=== PATIENT | female | born 1980 | race Caucasian/White ===

== ENCOUNTER 2019-02-15 15:44 | Inpatient (IN) | payer OTHER ==
[~2019-02-15] VITALS: Ht 167.6 cm; Wt 79.8 kg
[2019-02-15 15:58] VITALS: BP 140/93
[2019-02-15 16:31] LABS: ABSOLUTE BASOPHILS 0.1 thou/uL (0.0-0.2); ABSOLUTE LYMPHOCYTES 1.9 thou/uL (0.8-5.3); ABSOLUTE MONOCYTES 0.8 thou/uL (0.0-1.2); ABSOLUTE NEUTROPHILS 4.9 thou/uL (1.6-8.1); BASOPHILS 1.3 %; EOSINOPHILS 0.6 %; HEMOGLOBIN 13.1 gm/dL (12.0-15.0); LYMPHOCYTES 24.3 %; MCH 27.7 pg (26.0-34.0); MCHC 32.6 g/dL (28.0-37.0); MCV 85.1 fL (80.0-100.0); MPV 6.8 fl. (7.2-11.1); NUCLEATED RBCS 0 /100WBC; PLATELET COUNT* 494 thou/uL (150-400); POLYS 63.8 %; RBC 4.71 mil/uL (4.20-5.00); WBC 7.7 thou/uL (4.0-11.0)
[2019-02-15 16:36] LABS: CREATININE 0.8 mg/dL (0.6-1.3)
[2019-02-15 16:41] LABS: ALBUMIN 3.9 g/dL (3.4-5.0); TOTAL BILIRUBIN 0.4 mg/dL (<0.1-1.0); TOTAL PROTEIN 7.6 g/dL (6.4-8.2)
[2019-02-15 16:42] LABS: URINE BILIRUBIN NEGATIVE (Negative); URINE BLOOD 3+ (Negative); URINE CLARITY CLEAR; URINE COLOR YELLOW; URINE GLUCOSE-RANDOM NEGATIVE (Negative); URINE KETONES NEGATIVE (Negative); URINE LEUKOCYTES-REFLEX 1+ (Negative); URINE PROTEIN NEGATIVE (Negative); URINE UROBILINOGEN 0.2 E.U./dl (0.2-1.0)
[2019-02-15 16:44] LABS: URINE NITRITE-REFLEX POSITIVE (Negative)
[2019-02-15 16:56] LABS: SQUAMOUS 4-10 Moderate /LPF (0-3)
[2019-02-15 16:57] LABS: BACTERIA-REFLEX >30 Many /HPF (None Seen); CASTS None Seen /LPF (None Seen); CRYSTALS None Seen /LPF (None Seen); URINE RBC 3-10 Few /HPF (0-2); URINE WBC-REFLEX >25 Many /HPF (0-5)
[2019-02-15 20:00] VITALS: BP 136/87
[2019-02-15 20:12] VITALS: BP 126/82
[2019-02-16] VITALS: BP 123/69
--- NOTE | 2019-02-16 04:41 | NUR ---
PT ARRIVED FROM ER AT 2009. ASSESSMENT COMPLETED TO THE BEST OF ABILITY DUE TO PT FALLING ASLEEP SEVERAL TIMES DURING ASSESSMENT. NO C/O PAIN OR DISCOMFORT. ABLE TO MAKE NEEDS KNOWN. STARTED IV FLUIDS PER P.O. PAPERWORK SIGNED. PT RESTING IN BED AT THIS TIME STILL. WILL CONTINUE TO MONITOR.
[2019-02-16 09:00] VITALS: BP 117/78
--- NOTE | 2019-02-16 10:31 | NUR ---
ASSUMED PT CARE AT 0730, FULL ASSESMENT DONE CHARTED. PT A/O X3-4, IS SOMEWHAT CONFUSED, FLAT AFFECT SHE REPORTS HEARING VOICES FROM SOMEONE "OUT THERE" REFERING TO THE ROOF. PT STATES "THEY" TOLD HER SHE HAS SCABIES. PT ADMITS TO DRINKING YESTERDAY WELL SMOKING POT AND METH. PT WAS EATING BREAKFAST AND HER TRAY WAS PUSHED TO THE FLOOR, SHE DENIES THROWING IT. PT REPORTS ABDOMINAL PAIN, REPORTSBEING ON HER PERIOD. HER URINE WAS BLOOD TINGED THIS AM. SHE IS UP SBA. FALL PRECAUTIONS IN PLACE WITH BED ALARM ON. WILL CONTINUE WITH PLAN OF CARE.
[2019-02-16 12:00] VITALS: BP 116/86
[2019-02-16] MEDS ORDERED: CEFDINIR300 MG PO (13:45)
[2019-02-16 13:46] VITALS: BP 116/86
--- NOTE | 2019-02-16 18:37 | NUR ---
RECIEVED DISCHARGE ORDERS, DISCUSSED PLAN WITH PT. SHE DID NOT HAVE A RIDE, PROVIDED PT WITH CAB VOUCHER. PT MORE ALERT/AWAKE THIS AFTERNOON, DENIES AUDITORY HALLUCINATIONS AFTER RECEIVING AM DOSE OF XANEX. PT TEARFUL SHE LEFT WITH STAFF. PT WALKED TO FRONT ENTRANCE WITH STAFF AND TRANSPORTED VIA [facility]AX[facility].
--- NOTE | 2019-02-17 16:55 | EKG ---
[place] [address] ELECTROCARDIOGRAM REPORT Name: ANTHONY,NASTYRONE Childs Room: [address] IN [facility].#: [id number] Admission: 02/15/19 Attend Phys: Amadeo Jeter Discharge: 02/16/19 Date of : 84 Report #: [id number] THIS REPORT FOR: //name// [facility] ED Test Date: 2019-02-15 Test Time: 16:27:54 Pat Name: CRYSTAL CRUZ Department: Room: [facility] Gender: F Director Of [employer]: MARVIN : 1980 Requested By: Alfonso Portillo Order Number: [id number] MD: Jorge Mondragon Measurements Intervals [place] Rate: 90 P: 33 IN: 131 QRS: 23 QRSD: 83 T: 41 QT: 381 QTc: 467 Interpretive Statements Sinus rhythm Probable left atrial enlargement Baseline wander in lead(s) V2 No previous ECG available for comparison Electronically Signed On 02-17-2019 16:55:08 CDT by Jorge Mondragon [email or web address] <ELECTRONICALLY SIGNED> By: Jorge Mondragon MD, [facility] 02/17/19 1655 1627 1627 Jorge Mondragon MD, [facility] /EPI
== END 2019-02-16 17:48 | disposition home or self-care (01) | DRG 917 ==
LOC: M.ERS 15:44 → M.TBA-ER 18:12 → M.2W 20:12
PROVIDERS: Nurse Practitioner Family; ADMIT Internal Medicine
DX: T43.621A Poisoning by amphetamines, accidental (unintentional), initial encounter (principal); G93.41 Metabolic encephalopathy; N39.0 Urinary tract infection, site not specified; F17.210 Nicotine dependence, cigarettes, uncomplicated; F19.10 Other psychoactive substance abuse, uncomplicated; Y92.89 Other specified places as the place of occurrence of the external cause

== ENCOUNTER 2019-02-17 16:39 | Emergency (ER) | payer OTHER ==
[~2019-02-17] VITALS: Ht 157.5 cm; Wt 83.9 kg
[~2019-02-17 16:39] MED LIST: CEFDINIR300 MG PO
[2019-02-17 18:11] VITALS: BP 127/98
== END 2019-02-17 18:12 | disposition home or self-care (01) ==
LOC: M.ERS 16:39
DX: Z71.1 Person with feared health complaint in whom no diagnosis is made (principal); F25.9 Schizoaffective disorder, unspecified